=== PATIENT | male | born 1960 | race Caucasian/White ===

== ENCOUNTER 2018-09-01 01:23 | Emergency (ER) | payer OTHER ==
[2018-09-01 02:56] LABS: ADD MAN DIFF? NO
[2018-09-01 02:58] LABS: BASOPHILS % 0.2 % (0.0-2.0); EOSINOPHILS # 0.1 10^3/ul (0.0-0.5); EOSINOPHILS % 2.4 % (0.0-7.0); HEMATOCRIT 32.5 % (42.0-52.0); HEMOGLOBIN 10.5 g/dl (14.0-18.0); LYMPHOCYTES # 0.7 10^3/ul (0.8-2.9); LYMPHOCYTES % 17.4 % (15.0-51.0); MEAN CORPUSCULAR HEMOGLOBIN 27.1 pg (29.0-33.0); MEAN CORPUSCULAR HGB CONC 32.3 g/dl (32.0-37.0); MEAN PLATELET VOLUME 10.1 fl (7.4-10.4); MONOCYTE # 0.4 10^3/ul (0.3-0.9); MONOCYTES % 9.4 % (0.0-11.0); NEUTROPHILS % 70.1 % (39.0-77.0); PLATELET COUNT 167 10^3/UL (140-415); RED BLOOD COUNT 3.87 10^6/ul (4.70-6.10); RED CELL DISTRIBUTION WIDTH 13.3 % (11.5-14.5)
[2018-09-01 02:58] LABS: WHITE BLOOD COUNT 4.3 10^3/ul (4.8-10.8)
[2018-09-01 03:21] LABS: LIPASE 133 U/L (23-300)
[2018-09-01 03:22] LABS: ALANINE AMINOTRANSFERASE 22 IU/L (13-69); ALBUMIN 3.9 g/dl (3.3-4.9); ALBUMIN/GLOBULIN RATIO 1.34; ALKALINE PHOSPHATASE 81 IU/L (42-121); ANION GAP 12 (5-13); ASPARTATE AMINO TRANSFERASE 22 IU/L (15-46); BILIRUBIN,INDIRECT 0.2 mg/dl (0-1.1); BILIRUBIN,TOTAL 0.2 mg/dl (0.2-1.3); BLOOD UREA NITROGEN 15 mg/dl (7-20); CALCIUM 9.2 mg/dl (8.4-10.2); CARBON DIOXIDE 25 mmol/L (21-31); CHLORIDE 106 mmol/L (97-110); CREATININE 1.41 mg/dl (0.61-1.24); Estimated GFR 52 mL/min (>60); GLUCOSE 194 mg/dl (70-220); POTASSIUM 4.3 mmol/L (3.5-5.1); SODIUM 143 mmol/L (135-144); TOTAL PROTEIN 6.8 g/dl (6.1-8.1)
[2018-09-01 03:33] LABS: B-TYPE NATRIURETIC PEPTIDE 128 PG/ML (0-125); TROPONIN-I < 0.012 ng/ml (0.000-0.120)
[2018-09-01] MEDS: ONDANSETRON 4 MG INJ IV (03:33)
[2018-09-01] MEDS: LIDOCAINE/MYLANTA 40 ML BTL PO (03:33)
[2018-09-01] MEDS: FAMOTIDINE 20 MG INJ IV (03:33)
[2018-09-01] MEDS: morphine 4 MG/ML VIAL IV (03:33)
[2018-09-01] MEDS: SOD CHLORIDE 0.9% 500 ML IV (03:34)
[2018-09-01] MEDS ORDERED: ACETAMINOPHEN 325 MG TAB PO (04:30)
[2018-09-01] MEDS ORDERED: NACL 0.9% 3 ML SYG IV (04:30)
[2018-09-01] MEDS ORDERED: BISACODYL (EC) 5 MG TAB PO (04:30)
[2018-09-01] MEDS ORDERED: DOCUSATE SODIUM 100 MG CAP PO (04:30)
[2018-09-01] MEDS ORDERED: NITROGLYCERIN (SL) 0.4 MG TAB SL (04:30)
[2018-09-01] MEDS ORDERED: SOD CHLORIDE 0.9% 500 ML IV (05:00)
== END 2018-09-01 05:45 | disposition left against medical advice (07) ==
LOC: E/R 01:23
DX: R07.9 Chest pain, unspecified (principal); I10 Essential (primary) hypertension; E11.9 Type 2 diabetes mellitus without complications; Z79.84 Long term (current) use of oral hypoglycemic drugs
CPT/HCPCS: 36415; 71045; 80053; 83690; 83880; 84484; 85025; 93005; 96374; 96375; 99285-25